=== PATIENT | female | born 1970 | race Caucasian/White ===

== ENCOUNTER 2018-03-29 18:20 | Emergency (ER) | payer SELFPAY ==
[2018-03-29 18:28] VITALS: BP 150/77; BMI 18.5
[2018-03-29] MEDS ORDERED: NS 1000 ML 1,000 ML IV ONE (18:40)
[2018-03-29] MEDS ORDERED: NS 1000 ML 1,000 ML ONE (18:41)
[2018-03-29 19:02] LABS: BASOPHILS # (AUTO) 0.1 X10^3/uL (0.0-0.1); BASOPHILS % (AUTO) 0.6 % (0.2-1.0); EOSINOPHILS % (AUTO) 0.1 % (0.9-2.9); HEMATOCRIT 42.8 % (36.0-47.0); HEMOGLOBIN 14.8 g/dL (12.0-16.0); LYMPHOCYTES # (AUTO) 2.6 X10^3/uL (1.3-2.9); LYMPHOCYTES % (AUTO) 18.1 % (21.0-51.0); MEAN CORPUSCULAR HEMOGLOBIN 30.1 pg (27.0-34.0); MEAN CORPUSCULAR HGB CONC 34.5 g/dL (33.0-35.0); MEAN CORPUSCULAR VOLUME 87.2 fL (80.0-100.0); MEAN PLATELET VOLUME 8.8 fL (7.4-11.0); MONOCYTES % (AUTO) 6.9 % (0.0-13.0); NEUTROPHILS # (AUTO) 10.8 x10^3/uL (2.2-4.8); NEUTROPHILS % (AUTO) 74.3 % (42.0-75.0); PLATELET COUNT 363 X10^3/uL (150.0-450.0); RED CELL DISTRIBUTION WIDTH 13.6 % (11.6-16.5); WHITE BLOOD COUNT 14.5 X10^3/uL (3.6-10.0)
[2018-03-29 19:02] LABS: BILIRUBIN,URINE NEGATIVE (NEGATIVE); BLOOD/HEMOGLOBIN,URINE 2+ (NEGATIVE); GLUCOSE, URINE NEGATIVE (NEGATIVE); KETONES,URINE NEGATIVE (NEGATIVE); LEUKOCYTE ESTERASE ,URINE 1+ (NEGATIVE); NITRITES,URINE NEGATIVE (NEGATIVE); PROTEIN,URINE 1+ (NEGATIVE); UROBILINOGEN,URINE NORMAL (NORMAL)
[2018-03-29 19:13] LABS: ALANINE AMINOTRANSFERASE 41 Units/L (12-78); ALBUMIN 4.5 g/dL (3.4-5.0); ALKALINE PHOSPHATASE 131 Units/L (46-116); AMYLASE 33 Units/L (25-115); ASPARTATE AMINO TRANSFERASE 35 Units/L (15-37); BLOOD UREA NITROGEN 24 mg/dL (7-18); CALCIUM 8.8 mg/dL (8.5-10.1); CARBON DIOXIDE 28.6 mmol/L (21-32); CHLORIDE 100 mmol/L (98-107); COR NA(FOR HYPERGLY) 140 mmol/L (136-145); CREATININE 0.92 mg/dL (0.55-1.02); LIPASE 61 Units/L (73-393); SODIUM 139 mmol/L (136-145); TOTAL PROTEIN 7.9 g/dL (6.4-8.2); eGFR BLACK RACES > 60 (>60); eGFR NON BLACK RACES > 60 (>60)
[2018-03-29 19:14] LABS: APPEARANCE,URINE CLEAR (CLEAR); BACTERIA,URINE TRACE /HPF (NEGATIVE); COLOR,URINE YELLOW (YELLOW); RBC,URINE 0-2 /HPF (NONE SEEN); SQUAMOUS EPITHELIAL CELL,UR NUMEROUS /HPF (NEGATIVE)
[2018-03-29] MEDS ORDERED: MORPHINE SULFATE INJ 4 MG IVP ONE (19:29)
[2018-03-29] MEDS ORDERED: MORPHINE SULFATE INJ 4 MG ONE (19:30)
--- NOTE | 2018-03-29 20:26 | RAD ---
HISTORY: Abdominal pain and vomiting Study: Acute abdominal series Comparison: None Findings: The trachea is midline. The cardiac silhouette is unremarkable. The lungs are clear without focal i nfiltrate or effusion.. There is a subtle asymmetric nodular opacity in the right upper low which cou ld represent underlying nodule. This could be followed on a nonemergent outpatient routine basis with a follow-up CT. The bony thorax is unremarkable. Flat plate and upright evaluation of the abdomen demonstrates a normal bowel gas pattern. No patholo gical soft tissue mass or calcification can be observed. The bony structures are grossly intact. IMPRESSION: 1. No acute cardiopulmonary disease. 2. No evidence for acute abdominal pathology identified. 3. Subtle nodular opacity in the right lung apex as above for which a follow-up CT on a nonemergent o utpatient routine basis could performed to exclude underlying nodule. Reported By:
[2018-03-29] MEDS ORDERED: K-LYTE EFFERVESCENT PO ONE ×2 (20:46→20:53)
[2018-03-29] MEDS ORDERED: K-DUR TAB 20 MEQ PO ONE ×2 (20:50→20:53)
--- NOTE | 2018-03-29 20:50 | DR.GENAD ---
HPI - PCP Primary Care Physician: SWATHI - Complaint/Symptoms Chief Complaint Doctors Comments: Patient presents with complaint of stomach pain and vomiting for three days. She denies fever or diarrhea. Chief Complaint:: PT STATES" I BEEN HAVING ABD PAIN AND VOMITING SINCE THRUSDAY " - Source History Provided: Patient - Mode of Arrival Mode of Arrival: Ambulatory - Timing Onset of Chief Complaint: 03/27/18 PMH - PMH Past Medical History: No Past Surgical History: Yes Surgical History: Cholecystectomy, Hysterectomy - Family History History of Family Medical Conditions: Yes Family Medical History: Diabetes Mellitus, Cancer, Hypertension - Social History Type of Tobacco Use: Cigarettes Does any household member use tobacco: Yes Alcohol Use: None Do you use any recreational Drugs:: No Lives With: Family Lives Where: Home - infectious screening In the last 2 months have you had wt loss of >10#?: NO Have you had fever, night sweats or hemotysis?: No Have you traveled outside the country in the last 6 months?: No Isolation: Standard ROS - Review of Systems Eyes: No Symptoms Reported ENTM: No Symptoms Reported Respiratoy: No Symptoms Reported Cardiovascular: No Symptoms Reported Gastrointestinal/Abdominal: No Symptoms Reported Genitourinary: No Symptoms Reported Neurological: No Symptoms Reported Musculoskeletal: No Symptoms Reported Integumentary: No Symptoms Reported Hematologic/Lymphatic: No Symptoms Reported Endocrine: No Symptoms Reported Psychiatric: No Symptoms Reported All Other Systems: Reviewed and Negative PE - Vital Signs Vitals: Temperature 98.4 F Pulse Rate 116 Respiratory Rate 18 Blood Pressure 150/77 O2 Sat by Pulse Oximetry 98 - General General Appearance: Alert, In No Apparent Distress - Head Head Exam: Normal Inspection, Atraumatic - Eyes Eye exam: Normal Appearance, PERRL, EOMI - ENT ENT Exam: Normal Exam External Ear Exam: Normal External Inspection TM/Canal Exam: Bilateral Normal Nose Exam: Normal Nose Exam Mouth Exam: Normal Inspection Throat Exam: Normal Inspection - Neck Neck Exam: Normal Inspection, Full ROM - Chest Chest Inspection: Normal Inspection - Respiratory Respiratory Exam: Normal Lung Sounds Bilat Respiratory Exam: Bilateral Clear to Auscultation - Cardiovascular Cardiovascular Exam: Regular Rate, Normal Rhythm - Abdominal Exam Abdominal Exam: Normal Inspection, Normal Bowel Sounds Abdominal Tenderness: negative: RUQ, RLQ, LUQ, LLQ, Epigastrium, Suprapubic, Diffuse, Mild, Moderate, Severe, Other - Extremities Extremities Exam: Normal Inspection - Back Back Exam: Normal Inspection - Neurologic Neurological Exam: Alert, Oriented X3, CN II-XII Intact - Psychiatric Psychiatric Exam: Normal Affect, Normal Mood - Skin Skin Exam: Warm, Dry, Intact Course - Reevaluation 1st: Improved ROR - Labs Reviewed Laboratory Results Reviewed?: Yes (low potassium) Result Diagrams: 03/29/18 18:50 03/29/18 18:50 Laboratory: WBC 14.5 X10^3/uL (3.6-10.0) H 03/29/18 18:50 RBC 4.90 X10^6/uL (3.5-5.4) 03/29/18 18:50 Hgb 14.8 g/dL (12.0-16.0) 03/29/18 18:50 Hct 42.8 % (36.0-47.0) 03/29/18 18:50 MCV 87.2 fL (80.0-100.0) 03/29/18 18:50 MCH 30.1 pg (27.0-34.0) 03/29/18 18:50 MCHC 34.5 g/dL (33.0-35.0) 03/29/18 18:50 RDW 13.6 % (11.6-16.5) 03/29/18 18:50 Plt Count 363 X10^3/uL (150.0-450.0) 03/29/18 18:50 MPV 8.8 fL (7.4-11.0) 03/29/18 18:50 Neut % (Auto) 74.3 % (42.0-75.0) 03/29/18 18:50 Lymph % (Auto) 18.1 % (21.0-51.0) L 03/29/18 18:50 [place] % (Auto) 6.9 % (0.0-13.0) 03/29/18 18:50 Eos % (Auto) 0.1 % (0.9-2.9) L 03/29/18 18:50 Baso % (Auto) 0.6 % (0.2-1.0) 03/29/18 18:50 Neut # (Auto) 10.8 x10^3/uL (2.2-4.8) H 03/29/18 18:50 Lymph # (Auto) 2.6 X10^3/uL (1.3-2.9) 03/29/18 18:50 [place] # (Auto) 1.0 x10^3/uL (0.3-0.8) H 03/29/18 18:50 Eos # (Auto) 0.0 x10^3/uL (0.0-0.2) 03/29/18 18:50 Baso # (Auto) 0.1 X10^3/uL (0.0-0.1) 03/29/18 18:50 Absolute Nucleated RBC 0.0 /100WBC 03/29/18 18:50 Sodium 139 mmol/L (136-145) 03/29/18 18:50 Corrected Sodium 140 mmol/L (136-145) 03/29/18 18:50 Potassium 3.1 mmol/L (3.5-5.1) L 03/29/18 18:50 Chloride 100 mmol/L (98-107) 03/29/18 18:50 Carbon Dioxide 28.6 mmol/L (21-32) 03/29/18 18:50 BUN 24 mg/dL (7-18) H 03/29/18 18:50 Creatinine 0.92 mg/dL (0.55-1.02) 03/29/18 18:50 Est GFR (MDRD) Af Amer > 60 (>60) 03/29/18 18:50 Est GFR (MDRD) Non-Af > 60 (>60) 03/29/18 18:50 Glucose 123 mg/dL (65-99) H 03/29/18 18:50 Calcium 8.8 mg/dL (8.5-10.1) 03/29/18 18:50 Corrected Calcium TNP 03/29/18 18:50 Total Bilirubin 0.60 mg/dL (0.2-1.0) 03/29/18 18:50 AST 35 Units/L (15-37) 03/29/18 18:50 ALT 41 Units/L (12-78) 03/29/18 18:50 Alkaline Phosphatase 131 Units/L (46-116) H 03/29/18 18:50 C-Reactive Protein 0.60 mg/L (0-3.0) 03/29/18 18:50 Total Protein 7.9 g/dL (6.4-8.2) 03/29/18 18:50 Albumin 4.5 g/dL (3.4-5.0) 03/29/18 18:50 Globulin 3.4 g/dL (2.5-4.5) 18 18:50 Albumin/Globulin Ratio 1.3 Ratio (1.1-2.1) 03/29/18 18:50 Amylase 33 Units/L (25-115) 03/29/18 18:50 Lipase 61 Units/L (73-393) L 03/29/18 18:50 Specimen Type Clean catch urine 03/29/18 18:54 Urine Color Yellow (YELLOW) 03/29/18 18:54 Urine Appearance Clear (CLEAR) 03/29/18 18:54 Urine pH 7.0 (5.0 - 8.0) 03/29/18 18:54 Ur Specific [place] 1.005 (1.000-1.030) 03/29/18 18:54 Urine Protein 1+ (NEGATIVE) 03/29/18 18:54 Urine Glucose (UA) Negative (NEGATIVE) 03/29/18 18:54 Urine Ketones Negative (NEGATIVE) 03/29/18 18:54 Urine Occult Blood 2+ (NEGATIVE) 03/29/18 18:54 Urine Nitrite Negative (NEGATIVE) 03/29/18 18:54 Urine Bilirubin Negative (NEGATIVE) 03/29/18 18:54 Urine Urobilinogen Normal (NORMAL) 03/29/18 18:54 Ur Leukocyte Esterase 1+ (NEGATIVE) 03/29/18 18:54 Urine RBC 0-2 /HPF (NONE SEEN) 03/29/18 18:54 Urine WBC 0-2 /HPF (NONE SEEN) 03/29/18 18:54 Ur Squamous Epith Cells Numerous /HPF (NEGATIVE) 03/29/18 18:54 Urine Bacteria Trace /HPF (NEGATIVE) 03/29/18 18:54 Ur Culture Indicated? No/not indicated 03/29/18 18:54 H. pylori IgG Antibody Negative (NEGATIVE) 03/29/18 18:50 - XRAY XRAY Interpreted by: Radiologist (Acute Abdom: The trachea is midline. The cardiac silhouette is unremarkable. The lungs are clear without focal infiltrate or effusionn. There is a subtle asymmetric nodular opacity in the right upper lobe which could represent underlying nodule. This could be followed on a nonemergent outpatient routine basis with a follow-u CT. The bony thorax is unremarkable. Flat plate and upright evaluation of the abdomen demonstrates a normal bowel gas pattern. No pathological soft tissue mass or calcification can be observed. The bony structures are grossly intact. Impression: No acute cardiopulmonary disease. No evidence for acute abdomial pathology identified. Subtle nodular opacity in the right lung apex as above for whic a follow-up CT on a nonemergent outpatient routine basis could be performed to exclude underlying nodule.) - Diagnosis Discharge Problem: Hypokalemia Abdominal pain Qualifiers: Abdominal location: generalized Qualified Code(s): R10.84 - Generalized abdominal pain - Discharge Plan Condition: Stable - Follow ups/Referrals Follow ups/Referrals: WAYNE ECHEVARRIA [Primary Care Provider] - 3 days - Instructions
[2018-03-29] MEDS ORDERED: K-LYTE EFFERVESCENT ONE (20:55)
== END 2018-03-29 21:40 | disposition home or self-care (01) ==
LOC: ER 18:33
DX: R10.84 Generalized abdominal pain (principal); E87.6 Hypokalemia
CPT/HCPCS: 36415; 74022; 80053; 81001; 82150; 83690; 85025; 86140; 86677; 96365; 96374; 99283; A4222; J2270